=== PATIENT | female | born 1985 | race Caucasian/White ===

== ENCOUNTER 2020-01-01 01:04 | Outpatient (CLI) | payer OTHER, SELFPAY ==
[2020-01-01 18:04] LABS: SARS-CoV-2 RNA PCR Negative
== END 2020-01-01 01:05 | disposition home or self-care (01) ==
LOC: ANHCOVIDDT 01:04
PROVIDERS: PCP Physician Assistant; Visit Provider Obstetrics & Gynecology
DX: Z01.812 Encounter for preprocedural laboratory examination (principal); Z20.828 Contact with and (suspected) exposure to other viral communicable diseases
CPT/HCPCS: 87635; C9803; U0003

== ENCOUNTER 2020-01-05 01:35 | Day surgery (SDC) | payer OTHER, SELFPAY ==
[2019-12-23 11:03] VITALS: BMI 26.6
--- NOTE | 2020-01-04 13:44 | WPDANESEPPF ---
Anes - Initial Pre Proc Eval Procedure: Operation Date: 01/05/20 08:30 Proposed Procedures p Loop Electrical Excision Procedure - Akash Epstein MD Date/Time: 01/04/20 13:44 Surgeon: Akash Epstein MD Pre Op Diagnosis: DANIELLA III Patient Data Age: 34 Gender: F Height: 1.75 m Weight: 81.65 kg Allergies Allergy/AdvReac Type Severity Reaction Status Date / Time Penicillins Allergy Severe Hives Verified 01/05/20 06:56 Home Medications Medication Instructions Recorded Confirmed Type multivitamin 1 tablet PO DAILY 12/23/19 01/05/20 History Patient hx anesthesia problems: none Family hx anesthesia problems: none [facility] Past Medical History Medical History (Updated 12/28/19 @ 21:53 by Akash Epstein MD) Anxiety Social History Social History Smoking status: Never smoker Alcohol intake: current Spiritual care concerns: No Anes - Eval Final PreProcedure Day of Procedure 01/04/20 13:44 Patient weight: overweight Heart: regular rate and rhythm Lungs: clear to auscultation and normal air movement Airway: Mallampati scale class II Neurological: alert and oriented Last oral intake: >/= 8 hours ASA classification: II Emergent: no Anesthetic plan: proceed Anesthesia type and monitoring: general GIVS Informed Consent: The patient's anesthetic plan and its attendant risks and benefits were discussed with the patient/family/POA. Questions were solicited and answers provided to the satisfaction of the patient/family/POA.
[2020-01-05] MEDS: ACETAMINOPHEN 500 MG TABLET 1000 MG PO (07:00)
[2020-01-05] MEDS: LACTATED RINGERS 1,000 ML 30 ML IV CONT (07:10)
[2020-01-05 07:15] VITALS: BP 115/61; PULSE 72; RESP 14; TEMP 35.6; O2SAT 100; BMI 26.6
--- NOTE | 2020-01-05 07:28 | PM.IMHP ---
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 She had pap smear in October which showed atypical cells favor high grade dysplasia. Subsequent adequate colposcopy showed CIN3 at biopsy at 3 and 9, CIN2 at 6. ECC negative. She was recommended for LEEP for the severe dysplasia. Discussed risk of not removing abnormal cells. She agrees to LEEP procedure. Review of Systems Review of Systems: All systems reviewed & are unremarkable except as noted in HPI and below Cardiovascular: Cardiovascular: Reports no additional cardiovascular complaints, Denies chest pain and Denies dyspnea Respiratory: Respiratory: Reports no additional respiratory complaints and Denies dyspnea Gastrointestinal: Gastrointestinal: Reports abdominal pain, Denies change in bowel habits, Denies diarrhea, Denies nausea and Denies vomiting Integumentary/Breasts: Skin/Breast: Reports system reviewed and no additional complaints, except as docu Neurologic: Reports system reviewed and no additional complaints, except as documented [facility] Past Medical History Medical History (Updated 12/28/19 @ 21:53 by Akash Epstein MD) Anxiety Social History Social History Smoking status: Never smoker Alcohol intake: current Spiritual care concerns: No Meds Home Medications and Allergies Home Medications Medication Instructions Recorded Confirmed Type multivitamin 1 tablet PO DAILY 12/23/19 01/05/20 History Allergies Allergy/AdvReac Type Severity Reaction Status Date / Time Penicillins Allergy Severe Hives Verified 01/05/20 06:56 Vital Signs Vital Signs - 24 hr 01/05/20 07:15 Temperature 96.1 F L Pulse Rate 72 Respiratory Rate 14 Blood Pressure 115/61 Pulse Oximetry 100 Exam Const: Orientation/consciousness: oriented to person and oriented to place HENMT: Head: normal to inspection Eyes: General: appearance normal, both eyes and all related structures Resp: Effort & Inspection: normal respiratory effort Auscultation: clear to auscultation bilaterally Cardio: Rate: regular rate Rhythm: regular rhythm GI: Inspection: normal to inspection GI Palp: No Rebound tenderness present : External Female Exam: normal external appearance Speculum Exam - Vagina: normal appearance of the vagina Speculum Exam - Cervix: normal appearance of the cervix Bimanual Exam- Adnexa, other: normal adnexae Neuro: General: oriented to person and oriented to place Extrem: General: normal to inspection Psych: Appearance: grossly normal and well kempt Assessment and Plan Assessment and plan (1) DANIELLA III (cervical intraepithelial neoplasia III): Code(s): D06.9 - Carcinoma in situ of cervix, unspecified Status: Acute Assessment and Plan: Will proceed with Loop electrosurgical excision procedure.
--- NOTE | 2020-01-05 07:31 | WPDHPUPDATE1 ---
History and Physical Update Update Date/Time: 01/05/20 07:31 History and Physical has been reviewed, including an updated exam of the patient. There are NO changes in the patient's condition. Risks, benefits, and alternatives have been discussed and questions answered. Patient agrees to proceed with procedure.
[2020-01-05] MEDS: CLINDAMYCIN 900 MG/D5W 50 ML 900 MG/50 ML PIGGYBACK 50 MG IVPB (08:26)
[2020-01-05] MEDS: KETOROLAC 30 MG/ML VIAL (*BKC) IV PUSH (08:45)
[2020-01-05 08:57] VITALS: BP 97/50; PULSE 71; RESP 10; O2SAT 99
[2020-01-05] MEDS: FERRIC SUBSULFATE 8 ML SOLUTION WITH APPLICATOR TOPICAL (09:00)
[2020-01-05] MEDS: IODINE/POTASSIUM IODIDE 8 ML SOLUTION TOPICAL (09:00)
[2020-01-05 09:10] VITALS: BP 97/50; PULSE 63; RESP 12; O2SAT 99
[2020-01-05 09:25] VITALS: BP 96/49; PULSE 66; RESP 12; O2SAT 96
--- NOTE | 2020-01-05 09:30 | PM.PROC ---
Procedure Note - Detailed Date of procedure: 01/05/20 Pre-op diagnosis: DANIELLA III Post-op diagnosis: same Procedure performed: Loop electrosurgical excision procedure Description of procedure: After informed consent was obtained patient was taken to the operating room and adequate IV since sedation was administered. She was prepped and draped in sterile fashion. She was placed in high lithotomy position. Attention was turned to the vagina speculum was inserted. Lugol solution was placed on the cervix. Hypopigmentation was noted at 11 and 2 and 7 oclock at outer transformation zone. A total of 7 cc of 1% lidocaine with epinephrine was injected at the cervix biopsy site. The LEEP instrument was passed on cut enclosing the transformation zone anteriorly. The instrument was then passed posteriorly enclosing the transformation zone. The biopsy area was cauterized until hemostasis was noted with the rollerball cautery. Monsel's solution was placed at the biopsy site. Hemostasis was noted. The patient tolerated procedure well. Anesthesia: MAC and local Surgeon: Akash Epstein MD Estimated blood loss (mL): 5 Drains: No Packing: No Pathology: yes ( Anterior specimen and posterior specimen) Complications: No immediate complications Condition: stable Disposition: PACU Findings: Mild hypopigmentation of Lugols at 11 2 and 7. The LEEP enclosed all of hypopigmented areas in two passes.
[2020-01-05 09:40] VITALS: BP 96/57; PULSE 51; RESP 12
[2020-01-05 09:50] VITALS: BP 97/63; PULSE 50; RESP 14
== END 2020-01-05 09:57 | disposition home or self-care (01) ==
PROVIDERS: PCP Physician Assistant; Visit Provider Obstetrics & Gynecology
PROC: 0UBC7ZZ Excision of Cervix, Via Natural or Artificial Opening (ICD-10-PCS; CPT 57522; principal; 2020-01-05 08:30)
DX: D06.9 Carcinoma in situ of cervix, unspecified (principal); E66.3 Overweight; Z68.26 Body mass index [BMI] 26.0-26.9, adult; Z88.0 Allergy status to penicillin
CPT/HCPCS: 57522; 88305; A9270; J1885; J2250; J2405; J2704; J3010; J7120

== ENCOUNTER 2020-04-17 15:25 | Outpatient (CLI) | payer OTHER, SELFPAY ==
--- NOTE | ~2020-04-17 | CT_ITS ---
EXAMINATION: CT abdomen pelvis wo con DATE: 04/17/2020 16:02 INDICATION: History of bilateral kidney stones TECHNIQUE: Computed tomography (CT) of the abdomen and pelvis was performed without intravenous contr ast. Automated exposure control and iterative reconstruction technique were employed. Exam dose: 264 .95 mGy-cm total exam DLP. COMPARISON: 04/17/2020 [facility] FINDINGS: The lung bases are clear of infiltrate or consolidation. Heart size is normal. There is no pericardial or pleural effusion. The liver, gallbladder, bile ducts, spleen, pancreas, pancreatic duct, and adrenal glands and kidneys are unremarkable on this limited noncontrast examination. No urinary tract calculus or hydroureteron ephrosis. Normal appendix. There is a prominent amount of fecal material within the colon but no evidence of cleve wel obstruction, bowel wall thickening, pneumatosis or intraperitoneal free air. The uterus, adnexal areas and urinary bladder are unremarkable. Normal caliber of the abdominal aorta. No intraperitoneal or retroperitoneal or pelvic mass lesion or adenopathy or ascites. Small fat-containing umbilical hernia. Included skeletal structures are unremarkable other than transitional lumbosacral vertebra with sacra lization pseudoarthrosis on the left.. 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 Reviewed, dictated and finalized at [facility]. [employer]
--- NOTE | ~2020-04-17 | XR_ITS ---
XR abdomen/kub 1V DATE: 04/17/2020 15:51 INDICATION: History of kidney stones TECHNIQUE: AP projection, 2 views COMPARISON: 02/25/2019 [facility] 04/17/[address] abdomen pelvis FINDINGS: No calcified urinary tract stones are identified. There is a moderately prominent amount of fecal material in the colon but no bowel obstruction is helio dent. The psoas shadows are intact. No visceromegaly is detected. Included skeletal structures are unremarkable other than transitional lumbosacral vertebra with sacra lization pseudoarthrosis on the left. IMPRESSION: No urinary tract calcifications identified Reviewed, dictated and finalized at [facility]. Reviewed, dictated and finalized at [facility]. [employer] ASSOC[employer]
== END 2020-04-17 15:26 | disposition home or self-care (01) ==
LOC: ANHIMG 15:29
PROVIDERS: PCP Physician Assistant; Visit Provider Urology
DX: Z87.442 Personal history of urinary calculi (principal); Q76.49 Other congenital malformations of spine, not associated with scoliosis
CPT/HCPCS: 74018; 74176